=== PATIENT | female | born 1945 | race Asian ===

== ENCOUNTER 2024-11-03 14:29 | Outpatient (CLI) | payer OTHER, SELFPAY ==
--- NOTE | 2024-11-03 14:36 | ECG_ITS ---
Test Date: 2024-11-03 14:48:05 Measurements Intervals [place] Rate: 77 P: 49 MA: 205 QRS: -1 QRSD: 66 T: 28 QT: 378 QTc: 429 Interpretive Statements SINUS RHYTHM WITH BORDERLINE FIRST-DEGREE AV BLOCK OTHERWISE UNREMARKABLE ECG LOW QRS VOLTAGE IN PRECORDIAL LEADS [QRS DEFLECTION < 1.0 mV IN CHEST LEADS] No previous ECG available for comparison Electronically Signed On 11-03-2024 15:52:59 CDT by Ottoniel Funes M.D.
--- OUTSIDE RECORDS SUMMARY | 2024-11-03 15:08 | XMS_ITS | Continuity of Care Document ---
Author Name [facility] Organization [facility] Care Team Providers Care Medical Collector Name Role Phone [facility] Unavailable Unavailable Medications Combined list of outpatient medications from Department of Defense and Veterans Affairs facilities.Medications provided include 1) outpatient medications from the last 15 months, and 2) patient-reported medications. Medication Details Route Status Patient Instructions Prescription Expires Prescription Number Last Dispense Date Ordering Provider Order Date Order Qty Source CETIRIZINE (U/D) 10 MG ORAL TAB May cause drowsine ss.Obtai n advice for OTCs. 09/24/2024 [id number] 4 2023 90 [facility] ([facility] cetirizine 10 mg tablet See Instruct ions, # 90 EA, 3 total refill(s ), Hard Stop Complet ed 09/24/2024 5 2024 90.0 Ambulat ory Pharmac y cetirizine 10 mg tablet See Instruct ions, # 90 EA, 3 total refill(s ), Soft Stop Ordered 5 2024 90.0 Ambulat ory Pharmac y cetirizine 10 mg tablet See Instruct ions, # 90 EA, 2 total refill(s ), Acute Complet ed 09/07/2023 3 2023 90.0 Ambulat ory Pharmac y cycloSPORIN E 0.05% (PF) eye drops UD [30EA] See Instruct ions, # 180 EA, 3 total refill(s ), Hard Stop Ordered 02/03/2025 4 2023 180.0 Ambulat ory Pharmac y rosuvastati n 10 mg tablet See Instruct ions, # 90 EA, 3 total refill(s ), Hard Stop Complet ed 09/24/2024 5 2024 90.0 Ambulat ory Pharmac y rosuvastati n 10 mg tablet See Instruct ions, # 90 EA, 3 total refill(s ), Soft Stop Ordered 5 2024 90.0 Ambulat ory Pharmac y simvastatin 20 mg tablet See Instruct ions, # 90 EA, 3 total refill(s ), Hard Stop Discont inued 09/25/2023 4 2023 90.0 Ambulat ory Pharmac y terbinafine 250 mg tablet See Instruct ions, # 84 EA, 0 total refill(s ), Soft Stop Ordered 5 2024 84.0 Ambulat ory Pharmac y traMADol 50 mg tablet See Instruct ions, # 28 EA, 0 total refill(s ), Soft Stop Ordered 5 2024 28.0 Ambulat ory Pharmac y Allergies, Adverse Reactions, Alerts Combined list of allergies from Department of Defense and Veterans Affairs facilities. It does not include entries that were removed or entered in error. Substance Category Reaction Severity Reaction type Status Date Reported Comments Source sulfa drugs Propensity to adverse reactions to drug Unknown Active nausea Unknown Organization [facility] Drug allergy (disorder) Unknown active 0 [employer] [facility] ([facility] Immunizations Combined list of available immunizations from the Department of Defense and Veterans Affairs facilities. Immunization Series Date Given Administered By Site Reaction Lot Number CVX Code Drug Automotive Mechanic Status Comments Source zoster recombinant 2018 SHWETHA, () Not Given zoster recombina nt DoD tetanus, diphtheria, acellular pertu is 2018 zzEsperanza ht Arm [id number] 115 GlaxoSmithKli ne complet ed tetanus, diphtheri a, acellular pertussis 12/13/18 Given Ambulat ory Pharmac y zoster vaccine, inactivated 2018 zzLef t Arm [id number] GlaxoSmithKli ne complet ed zoster vaccine, inactivat ed 12/13/18 Given Ambulat ory Pharmac y tetanus toxoid, reduced diphtheria toxoid, and acellular pertu is vaccine, adsorbed 1 2018 Unknown, Provider [id number] 115 SmithKline (SKB) complet ed tetanus toxoid, reduced diphtheri a toxoid, and acellular pertussis vaccine, adsorbed DoD zoster vaccine recombinant 1 2018 Unknown, Provider [id number] SmithKline (SKoS) complet ed zoster vaccine recombina nt DoD zoster vaccine live 2007 zzLef t Arm [id number] Merck & Company Inc complet ed zoster vaccine live 04/10/08 Given Ambulat ory Pharmac y zoster vaccine, live 1 2007 Unknown, Provider [id number] Merck (MSD) complet ed zoster vaccine, live DoD tetanus-dipht h toxoids (Td) adult/adol 1999 zzLef t Arm [id number] GlaxoSmithKli ne complet ed tetanus-d iphth toxoids (Td) adult/ado l 11/30/99 Given Ambulat ory Pharmac y tetanus and diphtheria toxoids, adsorbed, preservative free, for adult use (2 Lf of tetanus toxoid and 2 Lf of diphtheria toxoid) 1 1999 Unknown, Provider [id number] Augustus ([place]IS) complet ed tetanus and diphtheri a toxoids, adsorbed, preservat miguelina free, for adult use (2 Lf of tetanus toxoid and 2 Lf of diphtheri a toxoid) DoD Procedures Combined list of: 1) Procedures from Department of Veterans Affairs facilities going back up to thelast 18 months, not all [place] non-surgical procedures are included; 2) All procedures from the Department of Defense facilities. Procedure Procedure Type Code Date Perfomer Comments Sourc e No data available for this section Ambulatory P harmacy Social History Combined list of available smoking, tobacco, and other social history from Department of Defense and Veterans Affairs facilities. Social History Type Response Date Comment Sourc e This section is an empty social history section. DoD Assessment and Plan Combined list of future care activities from Department of Defense and Veterans Affairs facilities (e.g., assessment and plan notes, appointments, orders, and referrals). Additional future care activities may be listed in the Plan of Care section. Result Assessment and Plan Date Source Assessment and Plan No data available for this section 11/03/2024 Ambulatory Pharmacy Functional Status Combined list of recent functional and cognitive assessments recorded at [facility] of Defense and [facility] ([place] Functional [place] Measurement (FIM) Scale: 1 = Total Assistance (Subject = 0% +), 2 = Maximal Assistance (Subject = 25% +), 3 = Moderate Assistance (Subject = 50% +), 4 = Minimal Assistance (Subject = 75% +), 5 = Supervision, 6 = Modified [place] (Device), 7 = Complete [place] (Timely, Safely). Assessment Date/Time Source Assessment Type Assessment Skill Assessment Score Assessment Details No data available for this section
== END 2024-11-03 14:30 | disposition home or self-care (01) ==
LOC: ANHSURGERY 14:32
PROVIDERS: Visit Provider Surgery Plastic and Reconstructive Surgery
DX: R94.31 Abnormal electrocardiogram [ECG] [EKG] (principal); E78.00 Pure hypercholesterolemia, unspecified
CPT/HCPCS: 93005

== ENCOUNTER 2024-11-06 01:13 | Day surgery (SDC) | payer OTHER, SELFPAY ==
--- NOTE | 2024-11-03 09:26 | PC.NURSE ---
Report to the Outpatient Waiting Room, entrance under the green pavilion located off [facility], at time __7 AM on date __11/06/24 . Planned Procedure Time: ___9 AM .? Time changes happen often and if your time is changed the preop area will call you the afternoon before. - You and your visitor will be asked to self-screen and do not enter if you have any COVID symptoms. Please call surgeon if you need to reschedule. - A mask is optional within the hospital at this time. Patients may have clear liquids (water, carbonated beverages, clear teas, apple juice) until 3 hours prior to surgery ( 6 AM ) with a maximum of 20 ounces. - No food from midnight until time of surgery and no smoking, or chewing tobacco (or any form of nicotine). No chewing gum, candy or mints. Take only the following medications with a SIP of water on the morning of surgery: EYE DROPS DO NOT STOP ANY OF YOUR OTHER PRESCRIPTION MEDICATIONS PRIOR TO SURGERY EXCEPT THE FOLLOWING Hold all vitamins and supplements for 3 days per anesthesiologist. Medications to discontinue per physician NONE Please no make-up, nail guatemalan, hairspray, perfume, deodorant, or body powder the day of surgery.? No jewelry (including any body piercings) or valuables the day of surgery, leave them at home.? Please take a shower or bath the night before, or the morning of, surgery with an antibacterial soap.? Wear comfortable, loose fitting clothing.? Children are encouraged to wear pajamas. - Jewelry must be removed prior to entering the operating room.? Rings and piercings that are not removed may be cut off. - The hospital will not accept responsibility for valuables.? - Please leave all valuables, including medications, at home the day of surgery. If you are going home after surgery, a licensed fence post driver must drive you home.? - NO public transportation without another adult if you receive anesthesia. - We recommend that an adult stay with you for 24 hours following discharge. - We also recommend that you do not drive, make important decision, drink alcoholic beverages, or take any drugs that were not prescribed by your health care provider for at least 24 hours after your discharge time. Follow any additional instructions given to you from your surgeon. Telephone instructions given to __PATIENT and asked if any additional questions and then verbalized understanding. Patient advised to call surgeon office or pre surgery nurse liaison [phone] if any additional questions.
[2024-11-03 09:38] VITALS: BMI 23.0
[2024-11-06] VITALS (9 sets, daily range): BP systolic 104–129; BP diastolic 57–73; PULSE 67–85; RESP 12–20; TEMP 36.3–36.4; O2SAT 94–98; BMI 23.2
--- OUTSIDE RECORDS SUMMARY | 2024-11-06 01:15 | XMS_ITS | Encounter Summary ---
Author Organization [facility] Address [address] [place] [address] Care Team Providers Care Ham Trimmer Name Role Phone Gabby FROST MD, Job Peace Primary Care Provider Reason for Visit * Reason Comments Back Pain * Physical Medicine (Urgent) - Authorized Specialty Diagnoses / Procedures Referred By Contac t Referred To Contact PHYSICAL THERAPY / [facility] Physical Therapy Diagnoses Right hip pain Sciatica of right side Procedures OFFICE/OUTPATIENT NEW LOW MDM 30-44 MINUTES OFFICE/OUTPT VISIT,NEW,LEVL IV OFFICE/OUTPT VISIT,NEW,LEVL V OFFICE/OUTPT VISIT,EST,LEVL III OFFICE/OUTPT VISIT,EST,LEVL IV OFFICE/OUTPT VISIT,EST,LEVL V Job Pierre II, MD [address] [place] [address] Phone: tel: fax: [facility] Physical Therapy [address] [place] [address] Phone: tel: fax: Referral ID Status Reason Start Date Expiration Date Visits Requested Visits Authorized [id number] Authorized Physical Therapy 10/21/2024 11/20/2025 10 10 Encounter Details Date Type Department Care Team (Late st Contact Info) Description 11/05/2024 9:45 AM CDT Office Visit [facility] Physical Therapy [address] [place] [address] Job Pierre II, MD [address] [place], [place] [phone] Althea Ohara, PT 1 [place] [address] Back Pain Social History Tobacco Use Types Packs/Day Years Used Date Smoking Tobacco: Never Smokeless Tobacco: Never Alcohol Use Standard Drinks/Week Comments Yes 6.7 (1 standard drink = 0.6 oz p ure alcohol) SOCIALLY PHQ-2 Answer Date Recorded Patient Health Questionnaire-2 Score 0 11/04/2024 Comments No Sex and Gender Information Value Date Recorded Sex Assigned at Female 07/16/2024 1:51 PM POCKET BUILDER Legal Sex Female 7:35 PM CDT Gender Identity Not on file Sexual Orientation Not on file documented as of this encounter Progress Notes * Althea Ohara, PT - 11/05/2024 9:45 AM CDT Physical Therapy Visit Note: Patient Name: Kam Rodney Older Diagnosis: Hip pain, acute, right (primary encounter diagnosis) Decreased range of right hip movement SUBJECTIVE Therapy Visit Start Time: 48 Stop Time: 1030 Time Calculation (min): 42 min Treatment Day: 2 Total Canceled Visits: 0 Total No Shows: 0 Total Approved Visits: 10 Authorization Expiration Date: [facility] Guidelines Therapy Plan of Care: 1-2x/week, hip mobility Current Therapy Orders: eval and treat Diagnosis: low back and R hip pain Referring Provider: Gabby Consulting Provider: JONATHAN Currie MD Visit: PRN Precautions: none Restrictions: none Date of Injury: NA Date of Surgery/Weeks Post-Op: NA Workers Compensation Injury: No Work Status: retired Subjective Note: First treatment since IE, states that pain has decreased in day time and been more active since. Pain has increased at night laying flat on her back Compliance to Home Program: yes daily Reported Falls since last visit: none Medications changes since last visit : none Pain Current Location of Pain: R hip Current Pain Level: 09/08 OBJECTIVE Treatment provided today: Therapeutic Exercise - 90189 Number of Minutes - 39737: 15 Exercise: Wide Base LTR 2x10 Reps Exercise: Supine Figure 4 Piriformis Stretch 1x3 Reps 20 Sec Hold Exercise: Hip Flexor Stretch at Stair 1x5 Reps 10 Sec Hold Exercise: Mod Bird Dog at // Bars 2x10 Reps Each Exercise: Reciprocal Marching with UE Assist at // Bars 2x10 Reps Exercise: HEP Review Manual Therapy - 76613 Number of Minutes - 16337: 27 Joint Mobilization: Inferior Hip Mobilization with Belt in supine Intervention: STM/DTM to proximal hip flexors in hooklying and supine Intervention: TPR to proximal hip flexors Intervention: PROM hip flexion/IR/ER Intervention: mod prashant stretch with therapist assist and theraroller usage ASSESSMENT Assessment Note: Independent with initial HEP. Focused treatment on manual techniques due to increase discomfort at nighttime, significant tension in proximal hip flexors. Compelted hip mobilizations no increase in pain, completed additional manual techniques, palpable release after mobilizations. Difficulty relaxing with mod prashant stretch, verbal cueing throughout. Exercises focused on gentle mobility andglobal hip strenghtening. Added standing hip flexor stretch to HEP. Decreased pain at end of session PLAN Plan Next Visit Plan: assess response consider adding hip flexor strethc with side bend, hip three way Total Time Total Time in Minutes: 42 Timed Code Treatment Minutes : 42 documented in this encounter Plan of Treatment Upcoming Encounters Date Type Department Care Team (Late st Contact Info) Description 11/18/2024 9:30 AM CDT Office Visit [facility] Physical Therapy [address] [place] [address] Althea Ohara, PT 1 [place] [address] 04/28/2025 1:00 PM CDT Office Visit [facility] Family Medicine - [place] [address] [place] [phone] Job Pierre II, MD [address] [place] [address] 06/29/2025 11:00 AM POCKET BUILDER Hospital Encounter [facility] [place] [address] Tariq Han MD [address] [facility] [address] [place] [address] 06/29/2025 11:00 AM POCKET BUILDER - 06/29/2025 11:30 AM POCKET BUILDER Surgery [facility] [address] Tariq Han MD [address] [facility] [address] [place] [address] COLONOSCOPY SCREENING Scheduled Procedures Name Priority Associated Diagnoses Date/Ti me COLONOSCOPY SCREENING Screening for colon cancer 06/29/2025 11:00 AM POCKET BUILDER documented as of this encounter Goals Goal Patient Goal Type Associated Problems Recent Progress Patient-Stated? Author Autogenera belinda Goal Care Plan Autogenerated Problem No Annemarie Boyle [facility] documented as of this encounter Visit Diagnoses Diagnosis Screening for colon cancer- Primary Special screening for malignant neoplasms, colon Hip pain, acute, right- Primary Decreased range of right hip movement Screening for colon cancer Special screening for malignant neoplasms, colon documented in this encounter Additional Health Concerns Active Problems Noted Date Diagnosed Date Autogenerated Problem 11/04/2024 Assessment Noted Time PHQ-9 Depression Total Score: 0 11/05/19 25 8:51 AM CDT documented as of this encounter Care Teams Ham Trimmer Relationship Specialty Start Date End Date Job Pierre II, MD [address] [place] [address] PCP - General FAMILY PRACTICE 08/02/22 documented as of this encounter
--- OUTSIDE RECORDS SUMMARY | 2024-11-06 01:15 | XMS_ITS | Encounter Summary ---
Author Organization [facility] Address [facility] [place] [address] Care Team Providers Care Carpet Weaver Name Role Phone Gabby FROST MD, Job Peace Primary Care Provider Encounter Details Date Type Department Care Team (Late st Contact Info) Description 10/21/2024 Results Follow-Up [facility] Family Medicine [address] [phone] Job Pierre II, MD [address] [place], [place] [phone] A1C (BACK OFFICE) Social History Tobacco Use Types Packs/Day Years Used Date Smoking Tobacco: Never Smokeless Tobacco: Never Alcohol Use Standard Drinks/Week Comments Yes 6.7 (1 standard drink = 0.6 oz p ure alcohol) SOCIALLY PHQ-2 Answer Date Recorded Patient Health Questionnaire-2 Score 0 09/25/2023 Comments No Sex and Gender Information Value Date Recorded Sex Assigned at Female 07/16/2024 1:51 PM SANITATION WORKER HOSING MACHINERY Legal Sex Female 7:35 PM CDT Gender Identity Not on file Sexual Orientation Not on file documented as of this encounter Plan of Treatment Upcoming Encounters Date Type Department Care Team (Late st Contact Info) Description 11/18/2024 9:30 AM CDT Office Visit [facility] Physical Therapy [address] [place], [place] [phone] Althea Ohara, PT 1 [place] [address] 04/28/2025 1:00 PM CDT Office Visit [facility] Family Medicine - [place] [address] [place] [address] Job Pierre II, MD [address] [place] [address] 06/29/2025 11:00 AM SANITATION WORKER HOSING MACHINERY Hospital Encounter [facility] [place] [address] Tariq Han MD [address] [facility] [address] [address] 06/29/2025 11:00 AM SANITATION WORKER HOSING MACHINERY - 06/29/2025 11:30 AM SANITATION WORKER HOSING MACHINERY [facility] [address] Tariq Han MD [address] [facility] [address] [address] COLONOSCOPY SCREENING Scheduled Procedures Name Priority Associated Diagnoses Date/Ti me COLONOSCOPY SCREENING Screening for colon cancer 06/29/2025 11:00 AM SANITATION WORKER HOSING MACHINERY documented as of this encounter Visit Diagnoses Not on filedocumented in this encounter Additional Health Concerns Assessment Noted Time PHQ-9 Depression Total Score: 0 08/29/19 22 10:31 AM SANITATION WORKER HOSING MACHINERY documented as of this encounter Care Teams Carpet Weaver Relationship Specialty Start Date End Date Job Pierre II, MD [address] [place] [address] PCP - General FAMILY PRACTICE 08/02/22 documented as of this encounter
--- OUTSIDE RECORDS SUMMARY | 2024-11-06 01:15 | XMS_ITS | Encounter Summary ---
Author Organization [facility] Address [facility] [place] [address] Care Team Providers Care String Top Sealer Name Role Phone Gabby FROST MD, Job Peace Primary Care Provider Encounter Details Date Type Department Care Team (Latest Contact Info) Description 11/05/2024 Travel Social History Tobacco Use Types Packs/Day Years Used Date Smoking Tobacco: Never Smokeless Tobacco: Never Alcohol Use Standard Drinks/Week Comments Yes 6.7 (1 standard drink = 0.6 oz p ure alcohol) SOCIALLY PHQ-2 Answer Date Recorded Patient Health Questionnaire-2 Score 0 11/04/2024 Comments No Sex and Gender Information Value Date Recorded Sex Assigned at Female 07/16/2024 1:51 PM IMMIGRATION JUDGE Legal Sex Female 7:35 PM CDT Gender Identity Not on file Sexual Orientation Not on file documented as of this encounter Plan of Treatment Upcoming Encounters Date Type Department Care Team (Late st Contact Info) Description 11/18/2024 9:30 AM CDT Office Visit [facility] Physical Therapy [address] [place] [address] Althea Ohara, PT 1 [place] [address] 04/28/2025 1:00 PM CDT Office Visit [facility] Family Medicine [address] [phone] Job Pierre II, MD 100 [place] [address] 06/29/2025 11:00 AM IMMIGRATION JUDGE Hospital Encounter [facility] [place] [address] Tariq Han MD [address] [facility] [address] 06/29/2025 11:00 AM IMMIGRATION JUDGE - 06/29/2025 11:30 AM IMMIGRATION JUDGE Surgery [facility] [place] [address] Tariq Han MD [address] [facility] [address] [phone] COLONOSCOPY SCREENING Scheduled Procedures Name Priority Associated Diagnoses Date/Ti me COLONOSCOPY SCREENING Screening for colon cancer 06/29/2025 11:00 AM IMMIGRATION JUDGE documented as of this encounter Goals Goal Patient Goal Type Associated Problems Recent Progress Patient-Stated? Author Autogenera belinda Goal Care Plan Autogenerated Problem No Annemarie Boyle [facility] documented as of this encounter Visit Diagnoses Not on filedocumented in this encounter Additional Health Concerns Active Problems Noted Date Diagnosed Date Autogenerated Problem 11/04/2024 Assessment Noted Time PHQ-9 Depression Total Score: 0 11/05/19 25 8:51 AM CDT documented as of this encounter Care Teams String Top Sealer Relationship Specialty Start Date End Date Job Pierre II, MD [address] [place] [address] PCP - General FAMILY PRACTICE 08/02/22 documented as of this encounter
--- OUTSIDE RECORDS SUMMARY | 2024-11-06 01:15 | XMS_ITS | Encounter Summary ---
Author Organization [facility] Address [facility] [place] [address] Care Team Providers Care Automation Qtp Tester Name Role Phone Gabby FROST MD, Job Peace Primary Care Provider Encounter Details Date Type Department Care Team (Late st Contact Info) Description 10/09/2024 [facility] Family Medicine [address] [phone] Job Pierre II, MD [address] [place] [address] Doctor Recommendation Social History Tobacco Use Types Packs/Day Years Used Date Smoking Tobacco: Never Smokeless Tobacco: Never Alcohol Use Standard Drinks/Week Comments Yes 6.7 (1 standard drink = 0.6 oz p ure alcohol) SOCIALLY PHQ-2 Answer Date Recorded Patient Health Questionnaire-2 Score 0 09/25/2023 Comments No Sex and Gender Information Value Date Recorded Sex Assigned at Female 07/16/2024 1:51 PM CERAMICS INSTRUCTOR Legal Sex Female 7:35 PM CDT Gender Identity Not on file Sexual Orientation Not on file documented as of this encounter Plan of Treatment Upcoming Encounters Date Type Department Care Team (Late Contact Info) Description 11/18/2024 9:30 AM CDT Office Visit [facility] Physical Therapy [address] [place], [place] [phone] Althea Ohara, PT 1 [place] [address] 04/28/2025 1:00 PM CDT Office Visit [facility] Family Medicine - [place] [address] [place] [address] Job Pierre II, MD [address] [place] [address] 06/29/2025 11:00 AM CERAMICS INSTRUCTOR Hospital Encounter [facility] [place] [address] Tariq Han MD [address] [address] 06/29/2025 11:00 AM CERAMICS INSTRUCTOR - 06/29/2025 11:30 AM CERAMICS INSTRUCTOR Surgery [facility] [place] [address] Tariq Han MD [address] [address] COLONOSCOPY SCREENING Scheduled Procedures Name Priority Associated Diagnoses Date/Ti me COLONOSCOPY SCREENING Screening for colon cancer 06/29/2025 11:00 AM CERAMICS INSTRUCTOR documented as of this encounter Visit Diagnoses Not on filedocumented in this encounter Additional Health Concerns Assessment Noted Time PHQ-9 Depression Total Score: 0 08/29/19 22 10:31 AM CERAMICS INSTRUCTOR documented as of this encounter Care Teams Automation Qtp Tester Relationship Specialty Start Date End Date Job Pierre II, MD [address] [place] [address] PCP - General FAMILY PRACTICE 08/02/22 documented as of this encounter
--- OUTSIDE RECORDS SUMMARY | 2024-11-06 01:16 | XMS_ITS | Continuity of Care Document ---
Author Name [facility] Organization [facility] Care Team Providers Care Doughnut Fryer Name Role Phone [facility] Unavailable Unavailable Medications Combined list of outpatient [...] drowsine ss.Obtai n advice for OTCs. 09/24/2024 [id number] 4 2023 90 [employer] Negor ZUNIGA ([facility] [place] [facility]) cetirizine 10 mg tablet See Instruct ions, [...] 3 2023 90.0 Ambulat ory Pharmac y citric ac/Mg ox/Na picos 12g-3.5g-10 mg/175 mL kay [175mL] See Instruct ions, # 350 mL, 0 total refill(s ), Soft Stop Ordered 5 2024 350.0 Ambulat ory Pharmac y cycloSPORIN E 0.05% (PF) eye drops UD [30EA] See Instruct ions, # 180 EA, 3 total refill(s ), Hard Stop Ordered 02/03/2025 4 2023 180.0 Ambulat ory Pharmac y docusate sodium 100 mg capsule See Instruct ions, # 14 EA, 0 total refill(s ), Soft Stop Ordered 5 2024 14.0 Ambulat ory Pharmac y ondansetron 4 mg tablet See Instruct ions, # 30 EA, 0 total refill(s ), Soft Stop Ordered 5 2024 30.0 Ambulat ory Pharmac y rosuvastati n 10 [...] 50 mg tablet See Instruct ions, # 15 EA, 0 total refill(s ), Soft Stop Ordered 5 2024 15.0 Ambulat ory Pharmac y traMADol 50 mg tablet See Instruct ions, # 28 EA, 0 total refill(s ), Soft Stop Discont inued 11/04/2024 5 2024 28.0 Ambulat ory Pharmac y [...] S Drug allergy (disorder) Unknown active 0 [facility] ZUNIGA ([facility] [place] [place]) Immunizations Combined list of available immunizations from the Department of Defense and Veterans Affairs facilities. Immunization Series Date Given Administered By Site Reaction Lot Number CVX Code Drug Development Expert Status Comments Source zoster recombinant 2018 SHWETHA, () Not Given zoster recombina nt DoD tetanus, diphtheria, acellular pertu is 2018 zzRig ht Arm [id number] 115 GlaxoSmithKli ne complet ed tetanus, diphtheri a, acellular pertussis 12/13/18 Given Ambulat ory Pharmac y zoster vaccine, inactivated 2018 zzLef t Arm [id number] GlaxoSmithKli ne complet ed zoster vaccine, inactivat ed 12/13/18 Given Ambulat ory Pharmac y tetanus toxoid, reduced diphtheria toxoid, and acellular pertu is vaccine, adsorbed 1 2018 Unknown, Provider [id number] 115 SmithKline ([place]) complet ed tetanus toxoid, reduced diphtheri a toxoid, and acellular pertussis vaccine, adsorbed DoD zoster vaccine recombinant 1 2018 Unknown, Provider [id number] KenyKline (SK[place]) complet ed zoster vaccine recombina nt DoD zoster vaccine live 2007 zzLef t Arm [id number] Merck & Company Inc complet ed zoster vaccine live 04/10/08 Given Ambulat ory Pharmac y zoster vaccine, live 1 2007 Unknown, Provider [id number] Merck (MSD) complet ed zoster vaccine, live DoD tetanus-dipht h toxoids (Td) adult/adol 1999 zzLef t Arm [id number] GlaxoSmithKli ne complet ed tetanus-d iphth toxoids (Td) adult/ado l 11/30/99 Given Ambulat ory Pharmac y tetanus and diphtheria toxoids, adsorbed, preservative free, for adult use (2 Lf of tetanus toxoid and 2 Lf of diphtheria toxoid) 1 1999 Unknown, Provider [id number] SmithKline (SKSo) complet ed tetanus and diphtheri a toxoids, adsorbed, preservat miguelina free, for adult use (2 Lf of tetanus toxoid and 2 Lf of diphtheri a toxoid) DoD Procedures Combined list of: 1) Procedures from Department of Veterans Affairs facilities going back up to thelast 18 months, not all VA non-surgical procedures are included; 2) All procedures [...] section is an empty social history section. [facility] Assessment and Plan Combined list of future care activities from Department of Defense and Veterans Affairs facilities (e.g., assessment and plan notes, appointments, orders, and referrals). Additional future care activities may be listed in the Plan of Care section. Result Assessment and Plan Date Source Assessment and Plan No data available for this section 11/06/2024 Ambulatory Pharmacy Functional Status Combined list of recent functional and cognitive assessments recorded at Department of Defense and Veterans Affairs (VA).VA Functional Towns Measurement (FIM) Scale: 1 = Total Assistance (Subject = 0% +), 2 = Maximal Assistance (Subject = 25% +), 3 = Moderate Assistance (Subject = 50% +), 4 = Minimal Assistance (Subject = 75% +), 5 = Supervision, 6 = Modified Towns (Device), 7 = Complete Towns (Timely, Safely). Assessment Date/Time Source Assessment Type Assessment Skill Assessment Score Assessment Details No data available for this section
--- OUTSIDE RECORDS SUMMARY | 2024-11-06 01:16 | XMS_ITS | Clinical Summary ---
Author Organization [facility] Address [address] [place] [address] Care Team Providers Care Telecommunications Cable Jointer Name Role Phone Gabby FROST MD, Job Peace Primary Care Provider Allergies Active Allergy Reactions Criticality Noted Date Comments Sulfamethoxazole-Trimethoprim Nausea Only 11/28 Sulfa Antibiotics Unknown 11/29/2023 nausea Medications RESTASIS 0.05 % ophthalmic emulsion 06/28/20 21 Active terbinafine (LAMISIL) 250 MG tabletIndications: Onychomycosis Take 1 tablet (250 mg total) by mouth daily. 84 tablet 10/22/19 25 Active traMADol (ULTRAM) 50 MG tabletIndications: Acute Pain < 7 Day Supply Take 1 tablet (50 mg total) by mouth every 6 (six) hours as needed for Pain. Indications: Acute Pain < 7 Day Supply 28 tablet 10/22/19 25 Active rosuvastatin (CRESTOR) 10 MG tabletIndications: Mixed hyperlipidemia Take 1 tablet (10 mg total) by mouth nightly at bedtime. 90 tablet 3 10/22/19 25 Active cetirizine (ZYRTEC) 10 MG tabletIndications: Non-seasonal allergic rhinitis, unspecified trigger Take 1 tablet (10 mg total) by mouth daily as needed. 90 tablet 3 10/22/19 25 Active Sod Picosulfate-Mag Ox-Cit Acd (CLENPIQ) 10-3.5-12 MG-GM -GM/175ML SolutionIndication s:Screening for colon cancer Take 175 mLs by mouth 2 (two) times a day. Per GI instructions 350 mL 11/05/19 25 Active rosuvastatin (CRESTOR) 10 MG tabletIndications: Mixed hyperlipidemia Take 1 tablet (10 mg total) by mouth nightly at bedtime. 90 tablet 3 09/25/19 24 025 Discontin ued(Reord er) cetirizine (ZYRTEC) 10 MG tabletIndications: Non-seasonal allergic rhinitis, unspecified trigger Take 1 tablet (10 mg total) by mouth daily as needed. 90 tablet 3 09/25/19 24 025 Discontin ued(Reord er) cycloSPORINE (RESTASIS) 0.05 % ophthalmic emulsion Place 1 drop into both eyes every 12 (twelve) hours. 02/04/20 24 025 Discontin ued(Dupli jihan Med) Active Problems Problem Noted Date Diagnosed Date Screening for colon cancer 11/04/2024 Prediabetes 06/18/2024 Dry eye syndrome of both eyes 09/25/2023 Non-seasonal allergic rhinitis, unspecified trig eloisa 09/08/2022 History of COVID-19 09/08/2022 Mixed hyperlipidemia 08/29/2021 Hearing loss Overview (09/08/2022): hearing aids Resolved Problems Problem Noted Date Diagnosed Date Resolved Date Need for pneumococcal vaccination 08/29/2021 09/05/2021 Encounters Date Type Department Care Team Description 11/05/2024 9:45 AM CDT Office Visit [facility] [address] [place] [address] Job Pierre II, MD Walters, Cierra J, PT Back Pain 11/05/2024 Travel 11/04/2024 8:40 AM CDT Office Visit [facility] - [address] [place] [address] Job Pierre II, MD Barnes, Lawrence J, PASarahC New Patient (New patient screening) 11/04/2024 [facility] [address] [place] [phone] Tariq Han MD 11/04/2024 Travel 10/29/2024 8:00 AM CDT Office Visit [facility] [address] [place] [address] Jbo Pierre II, MD Walters, Cierra J, PT Initial Evaluation 10/29/2024 Travel 10/21/2024 11:10 AM CDT Office Visit [address] [phone] Job Pierre II, MD Health Maintenance Follow Up (Patient presents for health maintenance to follow up for prediabetes and A1C check) 10/21/2024 Results Follow-Up [address] [address] Job Pierre II, MD A1C (BACK OFFICE) 10/21/2024 Travel 10/09/2024 MyChart Message Enc [address] [address] Job Pierre II, MD Doctor Recommendation 09/22/2024 Telephone [facility] - [facility] [address] [facility], [address] [place] [phone] Matt Zavlaa PA-C Appointment Request from Last 3 Months Immunizations Immunization Administration Dates Next Due FLUAD (IIV, Trivalent, 0.5 M L Pre-filled Syringe) 04/12/2024 Fluad influenza vaccine, Gilberto drivalent (aIIV4), Inactivated, adjuvanted, preservative free, 0.5 mL,IM use 07/23/2017 Fluzone High Dose - >Age 65 (Prefilled Syringe) 04/17/2022,03/23/2020 Influenza Adult (Generic) 09/01/2019,09/01/2019, 07/01/2014 MODERNA COVID-19 BIVALENT (1 2+), MRNA, LNP-S, PF 04/16/2022 PFIZER COVID-19 (DAVIS CAP), MRNA, LNP-S, PF, 30 MCG/0.3 ML NIKHIL-SUCROSE, IM 10/20/2021 PFIZER COVID-19 (ORIGINAL FO RMULATION, PURPLE CAP) mRNA, LNP-S, PF, 30 MCG/0.3 ML DOSE 04/27/2021,08/31/2020,08/09/2020 Pneumococcal (Pneumovax 23) 02/16/2020 Pneumococcal (Prevnar 20) 09/16/2021 Shingrix 05/05/2019,12/13/2018 Td (Generic) 11/30/1999 Td (TDVAX) 11/30/1999 Tdap (Generic) 12/13/2018,07/12/2016 Zoster (Zostavax) [id number] Unt/0.65Ml 04/10/2008 Family History Medical History Relation Comments Cancer Brother 1 Cancer Brother 2 Early Hearing Loss Brother 2 Cancer Brother 3 Stroke Father Aneurysm Mother Diabetes Mother Heart Disease Mother Breast Cancer Other niece Cancer Sister 1 Lung Cancer Early Hearing Loss Sister 2 Relation Status Comments Brother 1 Brother 2 Alive Brother 3 Father Mother AORTIC ANERRYSM Other Sister 1 Alive Sister 2 Alive Social History Tobacco Use Types Packs/Day Years Used Date Smoking Tobacco: Never Smokeless Tobacco: Never Tobacco Cessation:Counseling Given: No Alcohol Use Standard Drinks/Week Comments Yes 6.7 (1 standard drink = 0.6 oz p ure alcohol) SOCIALLY PHQ-2 Answer Date Recorded Patient Health Questionnaire-2 Score 0 11/04/2024 Comments No Sex and Gender Information Value Date Recorded Sex Assigned at Female 07/16/2024 1:51 PM ELECTRIC STOP INSTALLER Legal Sex Female 7:35 PM CDT Gender Identity Not on file Sexual Orientation Not on file Last Filed Vital Signs Vital Sign Reading Time Taken Comments Blood Pressure 133/82 11/04/2024 8:52 AM CDT Pulse 70 11/04/2024 8:52 AM CDT Temperature 36.6 C (97.8 F) 11/04/2024 8:52 AM CDT Respiratory Rate 18 11/04/2024 8:52 AM CDT Oxygen Saturation 98% 11/04/2024 8:52 AM CDT Inhaled Oxygen Concentration - - Weight 55.3 kg (122 lb) 11/04/2024 8:52 AM CDT Height 154.9 cm (5' 1 ) 11/04/2024 8:52 AM CDT Body Mass Index 23.05 11/04/2024 8:52 AM CDT Plan of Treatment Upcoming Encounters Date Type Department Care Team (Late st Contact Info) Description 11/18/2024 9:30 AM CDT Office Visit [facility] [address] [place] [address] Althea Ohara, PT [address] [place] [address] 04/28/2025 1:00 PM CDT Office Visit [facility] - [address] [place] [phone] Job Pierre II, MD [address] [place] [address] 06/29/2025 11:00 AM ELECTRIC STOP INSTALLER Hospital Encounter [facility] [place] [address] Tariq Han MD [address] [address] 06/29/2025 11:00 AM ELECTRIC STOP INSTALLER - 06/29/2025 11:30 AM ELECTRIC STOP INSTALLER Surgery [facility] Endo/[place] [address] Tariq Han MD [address] [address] COLONOSCOPY SCREENING Scheduled Procedures Name Priority Associated Diagnoses Date/Ti me COLONOSCOPY SCREENING Screening for colon cancer 06/29/2025 11:00 AM ELECTRIC STOP INSTALLER Health Maintenance Due Date Last Done Comments Hepatitis C 1963 Annual Medicare Wellness Visit 2011 RSV Immunization or 60+ Years (1 - 1-dose 75+ series) 2021 COVID-19 Vaccine (2023- season) 2024 04/12/2024, 04/30/2023, 04/16/2022, Additional history exists DTaP, Tdap and Td Vaccines (3 - Td or Tdap) 12/13/2028 12/13/2018, 07/12/2016, 11/30/1999, Additional history exists Zoster Vaccines Completed 05/05/2019, 11/30, 04/10/2008 Dexa Scan (General) Completed 03/18/2020, 03/18/2020, 02/29/2016, Additional history exists Pneumococcal Vaccine: 50+ Years Completed 09/16/2021, 02/16/2020 PHQ-2 (Physician [facility]) Completed 11/04/2024 Meningococcal B Vaccine Aged Out No l onger eligible based on patient's age to complete this topic Meningococcal Vaccine Aged Out No madeline eloisa eligible based on patient's age to complete this topic RSV Immunizations Under 20 Months Aged Out No longer eligible based on patient's age to complete this topic Goals Goal Patient Goal Type Associated Problems Recent Progress Patient-Stated? Author Autogenera belinda Goal Care Plan Autogenerated Problem No Annemarie Boyle S, CLINICAL UNIT COORDINATOR Procedures Procedure Name Priority Date/Time Associated Diagnosis Comments COLLECT.CAPILLARY (FNGR,HEEL,EAR) Routine 10/21/2024 4:01 PM CDT Prediabetes HEMOGLOBIN, GLYCOSYLATED Routine 10/21/2024 Prediabetes BONE DENSITY/DEXA Routine 03/18/2020 10: 27 AM CDT Post-menopausal from Last 3 Months or Most Recently Relevant to Health Maintenance Results * A1C (BACK OFFICE) (10/21/2024) HGB A1C 5.9 % MG-[address],[facility] 10/21/2024 us Job Pierre II, MD LABORATORY Final R esult -[address],[place] [address] [place] [address], * BONE DENSITY/DEXA (03/18/2020 10:27 AM CDT) Anatomical Region Laterality Modality Bone Mammography 03/18/2020 10:5 6 AM CDT Impressions 03/18/2020 10:58 AM CDT Impression: BMD measured at left femoral neck at WHO category level of osteopenia. BMD measured at right femoral neck, both total hips and AP lumbar spine at level of normal. Narrative 03/18/2020 10:58 AM CDT Examination: DEXA Bone densitometry EXAM DATE: 03/18/2020 10:13 AM Clinical history: Postmenopausal. Screening for osteoporosis. Technique: DEXA bone minimal density evaluation was performed in the AP projection over the lumbar spine and over both hips in the AP projection utilizing standard imaging techniques. Assessment: The BMD measured at the AP spine L1-L4 is 1.031 g/cm? with a T-score of -0.1 and a Z-Score of 2.2. Bone density is up to 10% below young normal. This patient is considered normal according to the World Health Organization (WHO) criteria. Fracture risk is low. The BMD measured at the femur total left is 0.925 g/cm? with a T-score of -0.1 and a Z-Score of 1.6. Bone density is up to 10% below young normal. This patient is considered normal according to the World Health Organization (WHO) criteria. Fracture risk is low. The BMD measured at the left femoral neck is 0.681 g/sq cm resulting in a T score -1.5 and a Z score 0.5, values at the WHO category level of osteopenia. The BMD measured at the femur total right is 0.971 g/cm? with a T-score of 0.2 and aZ-Score of 1.9. Bone density is up to 10% below young normal. This patient is considered normal according to the World Health Organization (WHO) criteria. Fracture risk is low. The BMD measured at the right femoral neck is 0.805 g/sq cm resulting in a T score of -0.4 and a Z score of 1.6, values at the WHO category level of normal. FRAX results: 10 year probability of major osteoporotic fracture 5.7% and of hip fracture 1.1% Recommendations: All patients should ensure an adequate intake of dietary calcium and vitamin D. The NOF recommend adults under the age of 50 need 1000 mg of calcium and 400-800 IU of vitamin D daily. Effective therapy for the prevention and treatment of osteoporosis include biphosphonates. Follow-up: People with diagnosed cases of osteoporosis or at high risk for fracture should have regular bone mineral density test. For patients eligible for Medicare, routine testing is allowed once every 2 years. Testing frequency can be increased to one year for patients who have rapidly progressing disease, those who are receiving or discontinuing medical therapy to restore bone mass, or have additional risk factors. Based on these results, a followup exam is recommended in no earlier than 2 years. Procedure Note Jhonny Allred MD - 03/18/2020 Examination: DEXA Bone densitometry EXAM DATE: 03/18/2020 10:13 AM Clinical history: Postmenopausal. Screening for osteoporosis. Technique: DEXA bone minimal density evaluation was performed in the AP projection over the lumbar spine and over both hips in the AP projection utilizing standard imaging techniques. Assessment: The BMD measured at the AP spine L1-L4 is 1.031 g/cm? with a T-score of -0.1 and a Z-Score of 2.2. Bone density is up to 10% below youngnormal. This patient is considered normal according to the World Health Organization (WHO) criteria. Fracture risk is low. The BMD measured at the femur total left is 0.925 g/cm? with a T-scoreof -0.1 and a Z-Score of 1.6. Bone density is up to 10% below youngnormal. This patient is considered normal according to the World Health Organization (WHO) criteria. Fracture risk is low. The BMD measured at the left femoral neck is 0.681 g/sq cm resulting in aT score -1.5 and a Z score 0.5, values at the WHO category level of osteopenia. The BMD measured at the femur total right is 0.971 g/cm? with a T-scoreof 0.2 and aZ-Score of 1.9. Bone density is up to 10% below youngnormal. This patient is considered normal according to the World Health Organization (WHO) criteria. Fracture risk is low. The BMD measured at the right femoral neck is 0.805 g/sq cm resulting woodrow T score of -0.4 and a Z score of 1.6, values at the WHO category levelof normal. FRAX results: 10 year probability of major osteoporotic fracture 5.7%and of hip fracture 1.1% Recommendations: All patients should ensure an adequate intake of dietary calcium and vitamin D. The NOF recommend adults under the age of 50 need 1000 mg of calcium and 400-800 IU of vitamin D daily. Effective therapy for the prevention and treatment of osteoporosis include biphosphonates. Follow-up: People with diagnosed cases of osteoporosis or at high risk for fracture should have regular bone mineral density test. For patients eligible for Medicare, routine testing is allowed once every 2 years. Testingfrequency can be increased to one year for patients who have rapidly progressing disease, those who are receiving or discontinuing medical therapy to restore bone mass, or have additional risk factors. Based on these results, a followup exam is recommended in no earlier than2 years. Impression: BMD measured at left femoral neck at WHO category level of osteopenia. BMD measured at right femoral neck, both total hips and AP lumbar spineat level of normal. Arcadio Laurent MD DEXA Final Resul t from Last 3 Months or Most Recently Relevant to Health Maintenance Additional Health Concerns Active Problems Noted Date Diagnosed Date Autogenerated Problem 11/04/2024 Insurance MEDICARE MEDICARE Care Teams Telecommunications Cable Jointer Relationship Specialty Start Date End Date Job Pierre II, MD [address] [place] [id number] PCP - General FAMILY PRACTICE 08/02/22
[2024-11-06] MEDS: LACTATED RINGERS 1,000 ML 30 ML IV CONT ×2 (07:50→11:41)
[2024-11-06 07:52] LABS: Urine Cotinine NEGATIVE
--- NOTE | 2024-11-06 08:10 | WPDHPUPDATE1 ---
History and Physical Update Update Date/Time: 11/06/24 08:10 History and Physical has been reviewed, including an updated exam of the patient. There are NO changes in the patient's condition. Risks, benefits, and alternatives have been discussed and questions answered. Patient agrees to proceed with procedure.
--- NOTE | 2024-11-06 08:22 | P.PNAN_ITS ---
Anes - Initial Pre Proc Eval Procedure: Operation Date: 11/06/24 09:00 Proposed Procedures p Upper and Lower Blepharoplasty - Arcenio Santoyo MD s Fat Grafting Bilateral Eyes - Arcenio Santoyo MD Date/Time: 11/06/24 08:22 Surgeon: Arcenio Santoyo MD Pre Op Diagnosis: Dermatochalasis Patient Data Age: 79 Gender: F Height: 1.55 m Weight: 55.7 kg Last Vital Signs Temp 97.5 F L 11/06/24 07:10 Pulse 70 11/06/24 07:10 Resp 16 11/06/24 07:10 BP 129/73 11/06/24 07:10 Pulse Ox 98 11/06/24 07:10 O2 Del Method Room Air 11/06/24 07:10 Allergies Allergy/AdvReac Type Severity Reaction Status Date / Time sulfamethoxazole (From AdvReac Nausea Verified 11/06/24 08:09 Sept) trimethoprim (From ) AdvReac Nausea Verified 11/06/24 08:09 Home Medications ?Medication ?Instructions ?Recorded ?Confirmed ?Type cetirizine 10 mg tablet 10 mg PO DAILY 11/03/24 11/06/24 History cyclosporine 0.05 % eye drops in a 1 drp EACH EYE Q12H 11/03/24 11/06/24 History dropperette rosuvastatin 10 mg tablet 10 mg PO DAILY 11/03/24 11/06/24 History terbinafine HCl 250 mg tablet 250 mg PO DAILY 11/03/24 11/06/24 History tramadol 50 mg tablet 50 mg PO PRN 11/03/24 11/03/24 History Laboratory Tests 11/06/24 07:23 Cotinine Negative Patient hx anesthesia problems: none Family hx anesthesia problems: none Results Review: All pre-operative results and documents have been reviewed as part of the pre- operative evaluation. [facility] Social History Social History Smoking status: Never smoker Alcohol intake: current Drinks per week: 7 Alcohol use details: WINE Living arrangements: with family Spiritual care concerns: No Anes - Eval Final PreProcedure Day of Procedure 11/06/24 08:22 Patient weight: normal Lungs: normal air movement Airway: Mallampati scale class II Neurological: alert and oriented Last oral intake: >/= 8 hours ASA classification: II Emergent: no Anesthetic plan: proceed Anesthesia type and monitoring: general LMA and standard monitoring Results Review: All pre-operative results and documents have been reviewed as part of the pre- operative evaluation. Hyperlipidemia. Informed Consent: The patient's anesthetic plan and its attendant risks and benefits were discussed with the patient/family/POA. Questions were solicited and answers provided to the satisfaction of the patient/family/POA.
--- NOTE | 2024-11-06 08:26 | W.PM.PROC2 ---
Procedure Note - Detailed Date of Procedure 11/06/24 Pre-op Diagnosis Dermatochalasis Post-op Diagnosis Same Procedure Performed 1. Bilateral upper blepharoplasty 2. Bilateral lower blepharoplasty with fat grafting Surgeon Arcenio Santoyo MD Anesthesia General Findings Bilateral lower lid / cheek fat grafting: Right - 7 cc Left - 7 cc Description of Procedure Preoperatively risks, benefits, alternatives were discussed in extensive detail. I want them to be very realistic about the risks involved as well as expectations. Discussed what we can and cannot improved. Limitations of this procedure. Alternative procedure as well as adjuvant procedures. This was a lengthy open-ended conversation discussing realistic expectations of outcome. Answered all of their questions to their satisfaction. Consent obtained. Marked in the preoperative holding along the tarsal crease. A pinch test was completed to jacob the upper border and pinch test was utilized to verify no lagophthalmos after simulation of skin removal. Taken to the operating room placed supine on the operating room table. Anesthesia provided by anesthesiology. Prepped and draped in a standard sterile fashion. Eyes were irrigated with BSS. Tetracaine eyedrops placed. Corneal protectors also placed. Fat harvest Stab incision was made and tumescent was utilized for hemostasis. Suction lipectomy was completed with hand lipo and placed for gravity separation. Upper blepharoplasty 1% lidocaine and 0.25% Marcaine with epinephrine was used anesthetize locally. A 15 blade was used to excise the skin flap. I thin incised the muscle and entered the nasal and middle compartments removing only what was clearly excess adiposity. I verified strict hemostasis throughout. This was closed with 5-0 fast absorbing plain gut suture. Tarsal plate reinforced with 5-0 Nylon. Lower blepharoplasty 1% lidocaine and 0.25% Marcaine with epinephrine was used anesthetize locally with low volume of local to protect from distortion of structures. Needle-tip cautery was used to incise just inferior to the tarsus and a transconjunctival lower lid blepharoplasty technique. The conjunctiva was retracted with a 5-0 nylon. I elevated in a preseptal fashion down to the level of the rim. At this point I entered the nasal, middle, and lateral compartments and removed only what was clearly excess adiposity. I verified strict hemostasis throughout. I verified that the inferior oblique was protected during this procedure. With gentle pressure on the globe I verified the contour the lower lids. Both lids proceeded in the same manner. Fat grafting Only the central fat from the syringes were used. These were passed through [employer] microfat grafting connectors t0 2.4 then 1.2 microns. 18 gauge needle utilized to make stab incisions. Fat infiltrated on tulip fat grafting cannulas in multiple plans and passes based on preoperative planning and intraoperative observation. Lower lid blepharoplasty She had slight redundancy of lower lid so lower pinch blepharoplasty completed. Marked out planned resection which was sharply excised. I verified no tension on lower lid prior to incision. This was closed with 5-0 plain gut. Retraction suture and corneal protectors were removed. Copious irrigated again with BSS solution. Patient was woken taken the PACU without difficulty. Normal forced duction test. All instrument sponge counts were correct at the end the case. Estimated Blood Loss 5 Drains No Packing No Pathology None sent Complications No immediate complications Condition Stable Disposition PACU
[2024-11-06] MEDS: TRANEXAMIC ACID 1,000MG/ISO100 1,000 MG/100 ML BAG 200 MG IVPB (08:35)
[2024-11-06] MEDS: BUPivacaine HCL 0.25% PF 30 ML VIAL INFILTRATE (08:53)
[2024-11-06] MEDS: ceFAZolin 2 GM/D5W 50 ML 2 GM/50 ML BAG IVPB (08:53)
[2024-11-06] MEDS: NACL 0.9% IRRIG BAG 1,000 ML, LIDOCAINE 1% LOCAL INJ 75 ML, EPINEPHrine HCL INJ 3 MG INFILTRATE (08:53)
[2024-11-06] MEDS: LIDO 1%/EPINEPHRINE 1:100,000 50 ML VIAL 10 ML INFILTRATE (08:53)
[2024-11-06] MEDS: TETRACAINE HCL 0.5% OPHTH SOLN 4 ML BTL 1 DROP EACH EYE (08:53)
== END 2024-11-06 13:35 | disposition home or self-care (01) ==
PROVIDERS: Visit Provider Surgery Plastic and Reconstructive Surgery
PROC: (CPT 15822; principal; 2024-11-06 09:00)
PROC: (CPT 15769; 2024-11-06 09:00)
DX: Z41.1 Encounter for cosmetic surgery (principal); H02.835 Dermatochalasis of left lower eyelid; H02.834 Dermatochalasis of left upper eyelid; H02.831 Dermatochalasis of right upper eyelid; H02.832 Dermatochalasis of right lower eyelid; E78.00 Pure hypercholesterolemia, unspecified; Z79.891 Long term (current) use of opiate analgesic; Z98.890 Other specified postprocedural states
CPT/HCPCS: 15822; 15820; 15773; 80307; A9270; J0171; J0690; J1100; J1171; J1200; J2003; J2004; J2250; J2371; J2405; J2704; J3010; J7030; J7120